=== PATIENT | female | born 1955 | race Caucasian/White ===

== ENCOUNTER 2023-07-08 07:14 | Day surgery (SDC) | payer MEDICARE, OTHER ==
[~2023-07-08] VITALS: Ht 162.6 cm; Wt 95.3 kg
[~2023-07-08 07:14] MED LIST: SODIUM CHLORIDE 0.9% 1,000 ML ONE
[2023-07-08] MEDS ORDERED: SODIUM CHLORIDE 0.9% 1,000 ML IV ONE (07:30)
[2023-07-08] MEDS ORDERED: FentaNYL CITRATE PF 100 MCG/2 ML VIAL ONE (08:40)
[2023-07-08] MEDS ORDERED: MIDAZOLAM HCL 2 MG/2 ML VIAL ONE (08:40)
[2023-07-08 08:46] LABS: GLUCOMETER DEV NAME(LOC) SDS.; GLUCOSE,POINT OF CARE 97 MG/DL (70-110)
[2023-07-08] MEDS ORDERED: MethylPREDNISolone SOD SUCC 125 MG/2 ML VIAL IVP ONE (09:45)
[2023-07-08 10:00] VITALS: PULSE 57; RESP 20; O2SAT 98
[2023-07-08] MEDS ORDERED: MethylPREDNISolone SOD SUCC 125 MG/2 ML VIAL ONE (10:14)
[2023-07-08] MEDS ORDERED: LEVO125 PO (10:49)
[2023-07-08] MEDS ORDERED: SEMA1PEN3 SQ (10:49)
[2023-07-08] MEDS ORDERED: BUDE10.27 IH (10:49)
[2023-07-08] MEDS ORDERED: EVOL140S2 SQ (10:49)
[2023-07-08] MEDS ORDERED: LISI-657 PO (10:49)
[2023-07-08] MEDS ORDERED: LIDOCAINE 4% 50 ML SOLUTION ONE ×2 (16:29→16:31)
[2023-07-08] MEDS ORDERED: LIDOCAINE 2% 11 ML JELLY ONE ×2 (16:29→16:31)
[2023-07-08] MEDS ORDERED: ALBUTEROL SULFATE 2.5 MG/0.5 ML NEB SOLUTION NEB ONE (16:29)
[2023-07-08] MEDS ORDERED: BENZOCAINE 20% 50 MCG/SPRAY 57 GM ONE ×2 (16:29→16:31)
== END 2023-07-08 12:10 | disposition home or self-care (01) ==
LOC: SURGERY 07:14
PROVIDERS: ATTEND Internal Medicine Critical Care Medicine
DX: J38.4 Edema of larynx (principal); B37.0 Candidal stomatitis; Z79.899 Other long term (current) drug therapy; I10 Essential (primary) hypertension; Z98.890 Other specified postprocedural states; Z72.89 Other problems related to lifestyle
CPT/HCPCS: 31623; 82962; 87206; 87101; 87220; 87070; 31624; 71045; 87015; J3010; J2250; J2930; Q9967; J7030; J7613; Z7610